=== PATIENT | female | born 1990 | race African-American/Black ===

== ENCOUNTER 2016-11-17 01:42 | Emergency (ER) | payer SELFPAY ==
[2016-11-17] MEDS ORDERED: Ondansetron HCl/PF 4 MG/2 ML Vial ONE (01:49)
== END 2016-11-17 03:27 | disposition home or self-care (01) ==
LOC: ERS 01:42
DX: R06.4 Hyperventilation (principal); I10 Essential (primary) hypertension; F17.210 Nicotine dependence, cigarettes, uncomplicated
CPT/HCPCS: 96374; J2405

== ENCOUNTER 2020-12-05 11:53 | Emergency (ER) | payer MEDICAID, SELFPAY ==
[2020-12-05] MEDS ORDERED: Bicillin LA 2.4 MILL.UNITS/4 ML SYRINGE ONE (13:23)
[2020-12-05] MEDS ORDERED: Ketorolac Tromethamine 30 MG/ML VIAL ONE ×2 (13:24→13:26)
[2020-12-05] MEDS ORDERED: Dexamethasone 10 MG/ML VIAL ONE (13:27)
== END 2020-12-05 13:50 | disposition home or self-care (01) ==
LOC: ERS 11:53
DX: J02.0 Streptococcal pharyngitis (principal); I10 Essential (primary) hypertension; F17.210 Nicotine dependence, cigarettes, uncomplicated
CPT/HCPCS: 96372; J0561; J1100; J1885

== ENCOUNTER 2021-06-19 08:53 | Emergency (ER) | payer SELFPAY ==
[2021-06-19] MEDS ORDERED: Ketorolac Tromethamine 30 MG/ML VIAL ONE ×2 (10:23→10:28)
== END 2021-06-19 10:43 | disposition home or self-care (01) ==
LOC: ERS 08:53
DX: H66.92 Otitis media, unspecified, left ear (principal); H72.92 Unspecified perforation of tympanic membrane, left ear; I10 Essential (primary) hypertension; F17.210 Nicotine dependence, cigarettes, uncomplicated
CPT/HCPCS: 96372; 99282; J1885

== ENCOUNTER 2022-01-06 00:11 | Emergency (ER) | payer SELFPAY ==
[2022-01-06] MEDS ORDERED: diphenhydrAMINE 25 MG CAP ONE (00:40)
[2022-01-06] MEDS ORDERED: Acetaminophen 500 MG TAB ONE (00:40)
== END 2022-01-06 00:46 ==
LOC: ERS 00:11
DX: S00.83XA Contusion of other part of head, initial encounter (principal); I10 Essential (primary) hypertension; F17.210 Nicotine dependence, cigarettes, uncomplicated
CPT/HCPCS: 99283